=== PATIENT | male | born 1950 | race Caucasian/White ===

== ENCOUNTER 2019-05-28 10:55 | Inpatient (IN) | payer MEDICARE ==
[~2019-05-28] VITALS: Ht 182.9 cm; Wt 70.8 kg
--- NOTE | 2019-05-28 11:00 | NUR ---
RN NOTE- ADMISSION NOTE PT ARRIVED VIA WCR FROM [facility] 5150 DTS AFTER EXPRESSING SUICIDAL IDEATION WITH PLAN TO "...KILL MYSELF WITH A KNIFE." PT HAS HAD MULTIPLE HOSPITALIZATIONS GOING BACK TO HIS LATE TEENS FOR DX BIPOLAR DO, SCHIZOPHRENIA. ON FACE TO FACE ASSESSMENT, PT CONTRACTS FOR SAFETY AND STATES, "IM DEPRESSED BUT DON'T WANT TO KILL MYSELF RIGHT NOW." DENIES HALLUCINATIONS OF ANY KIND. VS- B/P- 137/75, HR- 93, RR- 19, TEMP- 98.0. SATURATION 100% RA. PT DISHEVELED WITH RAMBLING CONVERSATION, A BIT GRANDIOSE AND TANGENTIAL IN THOUGHT. MOVES ALL EXTREMITIES W FULL RANGE OF MOTION. STATES HE HAS LOWER BACK PAIN THAT "I ALWAYS HAVE. NO OTHER MEDICAL ISSUES NOTED OR STATED AT PRESENT TIME. ID [id number] PLACED ON PT. CONSENTS SIGNED. DR MARTINS AND GABI GARCIA IN TO SEE PT. ORDERS WRITTEN AND COMPLIED WITH. WILL PROVIDE SAFE THERAPEUTIC ENVIRONMENT AND MONITOR PT
[2019-05-28] MEDS ORDERED: SIMV-49 PO (11:04)
[2019-05-28] MEDS ORDERED: DIVA-78 PO (11:04)
[2019-05-28] MEDS ORDERED: LITH300T3 PO (11:04)
[2019-05-28] MEDS ORDERED: CHLO25TA2 PO (11:04)
[2019-05-28] MEDS ORDERED: ROPI0.255 PO (11:04)
[2019-05-28] MEDS ORDERED: PHEN100C4 PO (11:04)
[2019-05-28] MEDS ORDERED: CARB-93 PO (11:04)
[2019-05-28] MEDS ORDERED: ACETAMINOPHEN 325 MG TABLET PO PRN (12:00)
[2019-05-28] MEDS ORDERED: BLOOD SUGAR DIAGNOSTIC 1 EACH STRIP IN ONE (12:00)
[2019-05-28] MEDS ORDERED: MAG HYDROX/AL HYDROX/SIMETH 30 ML UDC PO PRN (12:00)
[2019-05-28] MEDS: DIVALPROEX SODIUM 125 MG CAP.SPRINK PO SCH ×2 (13:04→17:06)
[2019-05-28] MEDS: CARBIDOPA/LEVODOPA 25/100 MG 1 UDTAB PO SCH ×2 (13:05→17:06)
[2019-05-28] MEDS: IBUPROFEN 400 MG TABLET PO PRN ×2 (13:05→21:42)
--- NOTE | 2019-05-28 13:05 | NUR ---
RN NOTE- PT MED COMPLIANT. STATED PAIN TO LOWER BACK. 6-10. MOTRIN GIVEN AT THIS TIME.
[2019-05-28 16:00] VITALS: BP 134/71
[2019-05-28] MEDS ORDERED: PHENYTOIN EXTENDED RELEASE 100 MG CAPSULE PO SCH (17:00)
[2019-05-28 20:12] VITALS: BP 114/65
[2019-05-28] MEDS: LITHIUM CARBONATE 150 MG CAPSULE PO SCH (21:33)
[2019-05-28] MEDS: SIMVASTATIN 20 MG TABLET PO SCH (21:34)
[2019-05-28] MEDS: LORAZEPAM 0.5 MG TABLET PO PRN (23:04)
[2019-05-29 07:02] LABS: ALBUMIN 3.3 g/dL (3.4-5.0); BILIRUBIN,TOTAL 0.2 mg/dL (0.2-1.0); CALCIUM, SERUM 8.7 mg/dL (8.5-10.1); CREATININE 0.6 mg/dL (0.6-1.3); POTASSIUM 4.4 mmol/L (3.5-5.1); TOTAL PROTEIN, SERUM 6.6 g/dL (6.4-8.2)
[2019-05-29 07:32] LABS: PHENYTOIN (DILANTIN) 3.6 ug/ml (10.0-20.0)
[2019-05-29 08:00] VITALS: BP 122/55
[2019-05-29 08:20] VITALS: BP 145/87
--- NOTE | 2019-05-29 08:20 | NUR ---
gps manager investment: notes found pt lying on his right side. pt is awake and able to make needs known. rom done to all ext's wnl. pt c/o lower back, and hip pain. asked pt if he hit his head and says yes. asked pt what happened, stated, "i was trying to get in position to eat my breakfast and i just fell down on the floor." per roommate, "he was standing up and loose his spool winder and then fell on the floor." assisted pt safely back to bed. vital signs taken and recorded. place a call to [employer], was on hold for minutes and then finally someone answered the call; message left to page peyton leon ([facility]). peyton leon ([facility]) called back at 0832 and informed her of incident with new orders. orders read back and carried out. Addendum: 05/29/19 at 0921 by PARESH MANTILLA LVN denies dizziness. neuro check wnl, pupils perrla at 3mm. no bump, bruise, but noted with small abrasion to left hip. will continue to monitor.
--- NOTE | 2019-05-29 08:25 | NUR ---
gps teletype or varitype keyboard operator: notes charge nurse also assessed pt.
--- NOTE | 2019-05-29 08:45 | NUR ---
gps vocational instructor: notes pt up and about using his walker in the hallway, informed pt that he needs to go back to bed. assisted pt safely back to bed.
--- NOTE | 2019-05-29 09:00 | NUR ---
gps review analyst: notes taken down for ct and x-rays via [facility] accompanied by staff.
--- NOTE | 2019-05-29 09:30 | NUR ---
gps customer assistant: notes back from radiology dept to his room.
[2019-05-29] MEDS: MAGNESIUM HYDROXIDE 30 ML UDC PO PRN (09:43)
[2019-05-29] MEDS: DIVALPROEX SODIUM 125 MG CAP.SPRINK PO SCH ×3 (09:43→16:48)
[2019-05-29] MEDS: CARBIDOPA/LEVODOPA 25/100 MG 1 UDTAB PO SCH ×3 (09:44→16:48)
[2019-05-29] MEDS: LITHIUM CARBONATE 150 MG CAPSULE PO SCH ×2 (10:18→21:01)
--- NOTE | 2019-05-29 10:20 | NUR ---
gps cosmetic dentist: notes place a call to chetna (), but no answer. social sciences instructor made aware re: s/p fall.
--- NOTE | 2019-05-29 10:30 | NUR ---
gps raisin separator operator: notes peyton leon ([facility]) here and informed her that pt's ct head and lumbar, and pelvis are resulted.
--- NOTE | 2019-05-29 11:20 | NUR ---
gps activity specialist: notes pt in activity dancing at this time.
--- NOTE | 2019-05-29 12:04 | NUR ---
gps rail filler: psych f/u seen by dr. gleason with new order. orders acknowledged. consent obtained from pt and faxed to pharmacy.
[2019-05-29] MEDS: risperiDONE-M 0.5 MG TAB.RAPDIS PO SCH ×2 (12:14→21:01)
[2019-05-29] MEDS ORDERED: PHENYTOIN SUSP UDC 100 MG/4 ML UDC PO SCH (13:00)
--- NOTE | 2019-05-29 13:35 | NUR ---
FAMILY CONTACT: SW contacted pts Sarai [phone] and left a voicemail for callback.
--- NOTE | 2019-05-29 13:44 | NUR ---
LAW ENFORCEMENT CONTACT: KAREN contacted Steelefidencio Velázquez from [facility] [phone] and left a voicemail to callback for collateral information.
--- NOTE | 2019-05-29 13:47 | NUR ---
[facility] CRISIS CONTACT: SW contacted [facility] [address] [facility] [address] and left a message for callback to discuss collateral information with Bhavani LEOS
[2019-05-29] MEDS: LORAZEPAM 0.5 MG TABLET PO PRN ×2 (14:34→21:02)
--- NOTE | 2019-05-29 15:40 | NUR ---
GROUP NOTE: Pt was present in group therapy on this present day discussing, "discharge planning," S: Pt states that he has rights and wants a workers' compensation magistrate to get him out of here because he needs to go rescue his from his parents who have her held hostage. O: Pt lacks insight into his mental illness and has impaired judgement. Pt is paranoid/delusional and states that his step-dad is a pedophile and exposes himself to his and that is why he needs to rescue her. Pt was not easily refractable and thought process is tangential with pressured speech. A: Pt as not gained awareness of mental illness and reason for hospitalization. P: Pt will continue group milieu and medication stabilization with the goal of gaining insight and verbalizing reality based statements.
[2019-05-29 16:00] VITALS: BP 114/62
--- NOTE | 2019-05-29 16:23 | NUR ---
[facility] CRISIS CONTACT: SW received a call from clerk Bettie at [facility] [address] [place] [address] who informed SW that she has contacted [facility] to do a wellness check on pts and mother as she has been unable to ge in contact with either of them.
--- NOTE | 2019-05-29 16:24 | NUR ---
LAW ENFORCEMENT CONTACT: SW received a call from Deputy Leigh from [facility] [phone] stating that he was at pts mother's home [address] [address] (where pt and currently reside) and confirmed that pts mother Noris and Sarai are okay and have not been able to contact SW due to their phone [phone] not working.
[2019-05-29] MEDS: PHENYTOIN SUSP UDC 100 MG/4 ML UDC PO SCH (16:49)
[2019-05-29 20:30] VITALS: BP 127/94
[2019-05-29] MEDS: SIMVASTATIN 20 MG TABLET PO SCH (21:01)
[2019-05-30] MEDS: IBUPROFEN 400 MG TABLET PO PRN (00:13)
[2019-05-30] MEDS: TEMAZEPAM 7.5 MG CAPSULE PO PRN ×2 (00:14→21:37)
[2019-05-30 08:00] VITALS: BP_SYST 98
[2019-05-30] MEDS: PHENYTOIN SUSP UDC 100 MG/4 ML UDC PO SCH ×3 (08:28→16:50)
[2019-05-30] MEDS: DIVALPROEX SODIUM 125 MG CAP.SPRINK PO SCH ×3 (08:28→16:50)
[2019-05-30] MEDS: LITHIUM CARBONATE 150 MG CAPSULE PO SCH ×2 (08:28→20:20)
[2019-05-30] MEDS: risperiDONE-M 0.5 MG TAB.RAPDIS PO SCH ×3 (08:28→20:20)
[2019-05-30] MEDS: CARBIDOPA/LEVODOPA 25/100 MG 1 UDTAB PO SCH ×3 (08:28→16:50)
--- NOTE | 2019-05-30 13:27 | NUR ---
INITIAL DISCHARGE PLAN: Patient wishes to return home [address] [place] [address] . Pt lives with his mom, step dad, and . SW will help form a safe and proper discharge in collaboration with .
--- NOTE | 2019-05-30 14:00 | NUR ---
SUBSTANCE ABUSE INTERVENTION: SW assessed, intervened, and will provide referrals upon discharge.
[2019-05-30 16:00] VITALS: BP 148/72
--- NOTE | 2019-05-30 16:15 | NUR ---
Group Note: SW encouraged pt to attend group therapy on 05/30/19 at 12pm discussing discharge planning. Pt appeared to have a pressured speech pattern and began speaking to the SW about his home situation and how his stepfather is inappropriately exposing himself to everyone in the home. When the SW attempted to interrupt the pt and redirect the pt, he would continue to speak rapidly. SW was able to ask if the pt wanted to return to his home and he stated no. When the SW asked if he would be willing to talk about this topic in a group format the pt refused.
[2019-05-30] MEDS ORDERED: risperiDONE-M 0.5 MG TAB.RAPDIS PO SCH (17:00)
[2019-05-30] MEDS: LIDOCAINE 5% (PATCH) 1 EA PATCH TP SCH (17:32)
--- NOTE | 2019-05-30 18:24 | NUR ---
GPS/RN CLOSING NOTES PATIENT CONTINUES TO REMAIN IN STABLE CONDITION THROUGHOUT THE SHIFT. PROVIDED COMFORT AND SAFETY AT ALL TIMES. COOPERATIVE WITH NO SUICIDAL IDEATION AT THIS TIME. ALL NEEDS ANTICIPATED. CALL LIGHT WITHIN REACHED. BED LOCKED AND IN LOWEST POSITION. WILL CONTINUE TO MONITOR CLOSELY. ENDORSED TO PM NURSE FOR JAKE.
[2019-05-30 19:58] VITALS: BP 134/78
[2019-05-30] MEDS: SIMVASTATIN 20 MG TABLET PO SCH (21:37)
--- NOTE | 2019-05-30 21:56 | NUR ---
GPS RN NOTES: PT C/O UNABLE TO SLEEP. PT REQUEST MEDICATION TO SLEEP. OFFERED RESTORIL 7.5 MG PO PRN ORDERED. ADMINISTERED MEDICATION. PT TOLERATED WELL. CONTINUE TO MONITOR.
--- NOTE | 2019-05-31 00:05 | NUR ---
GPS RN NOTES: VITALS: BP 112/63, HR 72, O2 SAT 98%, RESP 18, TEMP 97.7
[2019-05-31] MEDS: LORAZEPAM 0.5 MG TABLET PO PRN (00:50)
--- NOTE | 2019-05-31 00:56 | NUR ---
GPS RN NOTES: MT C/O FEELING ANXIOUS. OFFERED ATIVAN 0.5MG PO PRN ORDERED. VITALS CHECKED WNL. PT AGREED. [id number] MEDICATION. PT TOLERATED WELL CONTINUE TO MONITOR.
[2019-05-31] MEDS: IBUPROFEN 400 MG TABLET PO PRN (05:17)
--- NOTE | 2019-05-31 05:18 | NUR ---
GPS RN NOTES: PT C/O OF BACK PAIN. PT STATED, "CAN I HAVE PAIN MEDICATION PLEASE?" ASKED PT TO RATE PAIN 0-10. PT STATED, "ITS A 3". OFFERED MOTRIN 400MG PO PRN ORDERED. PT AGREED. ADMINISTERED MEDICATION. CONTINUE TO MONITOR.
[2019-05-31 08:00] VITALS: BP 138/75
[2019-05-31 08:27] LABS: PHENYTOIN (DILANTIN) 13.8 ug/ml (10.0-20.0)
[2019-05-31] MEDS: DIVALPROEX SODIUM 125 MG CAP.SPRINK PO SCH ×3 (08:59→17:53)
[2019-05-31] MEDS: risperiDONE-M 0.5 MG TAB.RAPDIS PO SCH ×3 (09:00→21:24)
[2019-05-31] MEDS: CARBIDOPA/LEVODOPA 25/100 MG 1 UDTAB PO SCH ×3 (09:00→17:53)
[2019-05-31] MEDS: PHENYTOIN SUSP UDC 100 MG/4 ML UDC PO SCH ×3 (09:00→17:53)
[2019-05-31] MEDS: LITHIUM CARBONATE 150 MG CAPSULE PO SCH ×2 (09:01→21:24)
--- NOTE | 2019-05-31 09:10 | NUR ---
PT. ENDORSED TO MIKIE DOCKERY,FOR CARE.
--- NOTE | 2019-05-31 11:00 | NUR ---
WOUND CARE CONSULT: PT PRESENTS AMBULATORY AND CONTINENT WITH DRY SCABS ON HANDS, PRESENT ON ADMISSION. WILL SEE PRN.
--- NOTE | 2019-05-31 11:30 | NUR ---
RECEIVED PT BACK FOR CARE UNDER ME.
--- NOTE | 2019-05-31 15:55 | NUR ---
GROUP NOTE: Pt was present in group therapy on this present day discussing "reality testing." Pt stated that he did not know why he was hospitalized and that he just needed to figure out how to get his money because his mother is his payee and she does not give him money. Pt stated that he needs money because he does not have a home and will be living in the streets when he is discharged. SW explained that he has a home to go to and that he currently lives with his parents. Pt denied it and said that he is homeless. Pt insight is impaired and judgement is poor. Pts thought process remains disorganized and paranoid.
[2019-05-31 16:00] VITALS: BP 126/66
[2019-05-31] MEDS ORDERED: diphenhydrAMINE HCL 25 MG CAPSULE PO PRN (16:00)
--- NOTE | 2019-05-31 16:00 | NUR ---
COOPER GIBBS (CEMENT PRODUCTION PLANT OPERATOR) CAME AND EXAMINED THE RASHES IN PTS. BACK AND ORDERED BENADRYL 25 MG PO Q6HR PRN FOR ITCHY.
[2019-05-31] MEDS: LIDOCAINE 5% (PATCH) 1 EA PATCH TP SCH (17:53)
[2019-05-31 20:16] VITALS: BP 145/76
[2019-05-31] MEDS: SIMVASTATIN 20 MG TABLET PO SCH (21:24)
[2019-05-31] MEDS: TEMAZEPAM 7.5 MG CAPSULE PO PRN (21:25)
[2019-06-01 08:00] VITALS: BP 120/83
[2019-06-01] MEDS: ENSURE ENLIVE 237 ML LIQUID (VANILLA) PO SCH (09:20)
[2019-06-01] MEDS: LITHIUM CARBONATE 150 MG CAPSULE PO SCH ×2 (10:06→20:58)
[2019-06-01] MEDS: DIVALPROEX SODIUM 125 MG CAP.SPRINK PO SCH ×3 (10:06→17:36)
[2019-06-01] MEDS: risperiDONE-M 0.5 MG TAB.RAPDIS PO SCH ×2 (10:07→13:21)
[2019-06-01] MEDS: CARBIDOPA/LEVODOPA 25/100 MG 1 UDTAB PO SCH ×3 (10:09→17:36)
[2019-06-01] MEDS: PHENYTOIN SUSP UDC 100 MG/4 ML UDC PO SCH ×3 (10:09→17:35)
[2019-06-01 16:00] VITALS: BP 148/76
--- NOTE | 2019-06-01 16:06 | NUR ---
SNF REFERRAL: SW faxed SNF referral to [facility] Address: [address] [facility], [place] [address] for review.
--- NOTE | 2019-06-01 16:09 | NUR ---
Group Note: SW encouraged pt to attend group therapy on 06/01/19 at 2pm discussing social supports. Pt appeared to have a pressured speech pattern and appeared to be tangential. Pt stated that he did not want to participate in group therapy but he stated that he has that he must save from the rest of his family. SW had a difficult time redirecting the pt and deemed him inappropriate for group therapy at this time.
[2019-06-01] MEDS: LIDOCAINE 5% (PATCH) 1 EA PATCH TP SCH (17:37)
[2019-06-01 20:05] VITALS: BP 119/74
--- NOTE | 2019-06-01 20:05 | NUR ---
GPS/RESEARCH ANIMAL FACILITY SUPERVISOR NOTES: PT. FOUND SITTING ON THE FLOOR BY CHARGE NURSE ROCAEL WEEKS AFTER BED ALARM SOUNDING AND LOUD NOISE HEARD. PT. STATED THAT HE TRIED TO GET UP WITHOUT USING CALL ANDERSON AFTER INSTRUCTED TO DO SO, AND SLIPPED ON THE FLOOR. PT. REFUSED TO USE WALKER AND HAD FRESH PAIR OF NON SLIP SOCKS ON. VITALS TAKEN : BP 136/79, HR 88, RESPIRATION 18, AND O2 SAT NOTED AT 98%. PT. DENIES HITTING HEAD AND LOSS OF CONSCIOUSNESS AND DENIES ANY PAIN. ROM TO BOTH UPPER AND LOWER EXTREMITIES DONE WITHOUT ANY PAIN OR RESTRICTIONS. WILL PAGE DR. NEW AND NOTIFY CHILD CARE NURSE AND FAMILY.
--- NOTE | 2019-06-01 20:20 | NUR ---
GPS/DIRECTOR FIELD SERVICES NOTES: PAGED DR. NEW REGARDING PT. FALL. WILL WAIT FOR CALL BACK.
[2019-06-01] MEDS: SIMVASTATIN 20 MG TABLET PO SCH (20:58)
[2019-06-01] MEDS ORDERED: risperiDONE-M 0.5 MG TAB.RAPDIS PO SCH (21:00)
--- NOTE | 2019-06-01 21:59 | NUR ---
GPS/GAMEPLAY ENGINEER NOTES: DR. NEW RETURNED CALL. INFORMED HER REGARDING FALL. NO NEW ORDERS.
[2019-06-02] MEDS: IBUPROFEN 400 MG TABLET PO PRN (02:06)
[2019-06-02] MEDS ORDERED: ONDANSETRON HCL 4 MG/5 ML SOLUTION PO PRN (02:30)
[2019-06-02 07:50] LABS: BASOPHILS % (AUTO) 0.3 % (0.0-2.0); EOSINOPHILS % (AUTO) 1.3 % (0.0-6.0); HEMATOCRIT 41 % (39-51); HEMOGLOBIN 13.6 g/dL (13.5-17.5); LYMPHOCYTES # (AUTO) 1.4 /CMM (0.8-4.8); LYMPHOCYTES % (AUTO) 18.8 % (20.0-44.0); MEAN CORPUSCULAR HGB CONC 33 g/dl (31.0-36.0); MEAN CORPUSCULAR VOLUME 94 fL (80-96); MONOCYTES # (AUTO) 0.5 /CMM (0.1-1.30); MONOCYTES % (AUTO) 7.1 % (2.0-12.0); NEUTROPHILS # (AUTO) 5.6 /CMM (1.8-8.9); NEUTROPHILS % (AUTO) 72.5 % (43.0-81.0); PLATELET COUNT (AUTO) 254 /CMM (150-450); RED BLOOD CELL COUNT(AUTO) 4.35 MIL/uL (4.5-6.0); WHITE BLOOD COUNT (AUTO) 7.7 K/uL (4.3-11.0)
[2019-06-02 08:00] VITALS: BP 131/70
[2019-06-02 08:12] LABS: CREATININE 0.7 mg/dL (0.6-1.3); MAGNESIUM 2.1 mg/dL (1.8-2.4); PHOSPHORUS 2.9 mg/dL (2.5-4.9); POTASSIUM 3.9 mmol/L (3.5-5.1)
[2019-06-02] MEDS: ENSURE ENLIVE 237 ML LIQUID (VANILLA) PO SCH ×2 (09:00→17:32)
--- NOTE | 2019-06-02 09:30 | NUR ---
SNF CONTACT: SW received a call from darlene Greene at [facility] Address: [address] [place] [address] stating pt has not been accepted to the facility due to him not having a Dementia/ Alzheimer diagnosis and not being appropriate for their population as pt has more psych issues.
[2019-06-02] MEDS: PHENYTOIN SUSP UDC 100 MG/4 ML UDC PO SCH ×3 (09:50→17:32)
[2019-06-02] MEDS: risperiDONE-M 0.5 MG TAB.RAPDIS PO SCH ×2 (09:52→12:48)
[2019-06-02] MEDS: DIVALPROEX SODIUM 125 MG CAP.SPRINK PO SCH ×3 (09:52→17:32)
[2019-06-02] MEDS: CARBIDOPA/LEVODOPA 25/100 MG 1 UDTAB PO SCH ×3 (09:53→17:32)
[2019-06-02] MEDS: LITHIUM CARBONATE 150 MG CAPSULE PO SCH (09:53)
--- NOTE | 2019-06-02 10:19 | NUR ---
SNF REFERRAL: SW faxed SNF referral to Reynaldo, business services coordinator at [facility] ([facility]) [address] [place] [address] P: [phone] for review.
--- NOTE | 2019-06-02 11:48 | NUR ---
DISCHARGE PLAN: Pt discharging at 4:00pm via [facility] to [facility] ([facility]) [address] [place] [address] P: [phone]. SW contacted pts mother Noris [phone] who agreed with the discharge plan. Pts mood is euthymic with congruent affect. Pt denied visual/auditory hallucinations and denied suicidal /homicidal ideation. Pt will address his cannabis use and alcohol use with Psychiatrist: Dr. Michelle Hwang [address] [place] [address] [phone] and follow up with Rag Willow Operator: Dr Reyes Address: [address] [place] [phone] .The multidisciplinary exitcare form was done, printed, signed, and given to the patient.
[2019-06-02] MEDS: MAGNESIUM HYDROXIDE 30 ML UDC PO PRN (12:22)
--- NOTE | 2019-06-02 15:58 | NUR ---
MIKIE NOTE- CARE TRANSFERRED TO JANES DELUNA Addendum: 06/02/19 at 1603 by DOREEN TURNER RN MIKIE SANDOVAL- CARE TRANSFERRED TO ELIZABETH DELUNA
[2019-06-02 16:00] VITALS: BP 147/67
--- NOTE | 2019-06-02 16:10 | NUR ---
GPS/RN Pt is being discharged to [facility]. PT REFUSED TO SIGN D/C PAPERWORK/EXIT CARE AND REFUSED TO LET NURSE TO TAKE PICTURES. CALLED FOR FACILITY TO REPORT/NO ANSWER. [facility] ADMITTING CONTACTED BY ADRIAN JONES AND NURSE WILL CALL GPS FOR REPORT.
[2019-06-02] MEDS: LIDOCAINE 5% (PATCH) 1 EA PATCH TP SCH (18:01)
--- NOTE | 2019-06-02 19:35 | NUR ---
GPS/RN PT LEFT TO [facility]IA [facility] #[id number]. VSS. NO ACUTE DISTRESS NOTED. NO SI OR HI AT THE TIME OF DISCHARGE. PROPERTY RETURNED. MEDS RECON /EXIT CARE TEACHINGS PROVIDED.
--- NOTE | 2019-06-26 09:02 | NUR ---
15 DAY SUBSTANCE ABUSE FOLLOW UP: Pt excluded due to D/C to SNF.
== END 2019-06-02 19:40 | DRG 885 ==
LOC: GPS 10:55
PROVIDERS: ADMIT Psychiatry & Neurology Psychosomatic Medicine; ATTEND Nurse Practitioner Acute Care
DX: F25.0 Schizoaffective disorder, bipolar type (principal); R45.851 Suicidal ideations; E78.5 Hyperlipidemia, unspecified; G20 Parkinson's disease; F12.90 Cannabis use, unspecified, uncomplicated; F10.10 Alcohol abuse, uncomplicated; Z59.0 Homelessness; F41.9 Anxiety disorder, unspecified; F09 Unspecified mental disorder due to known physiological condition; F19.10 Other psychoactive substance abuse, uncomplicated; G40.909 Epilepsy, unspecified, not intractable, without status epilepticus; K21.9 Gastro-esophageal reflux disease without esophagitis; G89.29 Other chronic pain; M54.5 Low back pain; G25.2 Other specified forms of tremor; T50.905A Adverse effect of unspecified drugs, medicaments and biological substances, initial encounter; Y92.89 Other specified places as the place of occurrence of the external cause
CPT/HCPCS: 36415; 70450-TC; 72100-TC; 72170-TC; 80048-TC; 80053-TC; 80061-TC; 80164-TC; 80185-TC; 82962-TC; 83735-TC; 84100-TC; 85025-TC; 87081-TC; 95819-TC; 97116-TC; 97530-TC; Q0162; Q0163

== ENCOUNTER 2019-06-03 22:40 | Inpatient (IN) | payer MEDICARE ==
[~2019-06-03] VITALS: Ht 182.9 cm; Wt 82.1 kg
[~2019-06-03 22:40] MED LIST: CARB-93 PO; CHLO25TA2 PO; DIVA-78 PO; LITH300T3 PO; PHEN100C4 PO; ROPI0.255 PO; SIMV-49 PO
--- NOTE | 2019-06-03 22:46 | NUR ---
SEEN AND EXAMINED BY
--- NOTE | 2019-06-03 23:06 | NUR ---
PT BIB EMS FROM [facility] C/O LACERATION ABOVE THE LEFT EYE. PATIENT WAS FOUND ON FLOOR IN THE RESTROOM FOLLOWING AN UNWITNESSED FALL WITH BLOOD COMING FROM LACERATION ABOVE THE LEFT EYE, PER EMS REPORT. AAOX3, UNABLE TO RECALL THE DATE. NO SOB. NOT IN ANY DISTRESS. CONNECTED TO MONITOR.
--- NOTE | 2019-06-03 23:10 | NUR ---
EMT AT BEDSIDE FOR CLEANING OF WOUND
--- NOTE | 2019-06-03 23:18 | NUR ---
BLOOD DRAWN AND SENT TO LAB.
[2019-06-03 23:23] LABS: BASOPHILS # (AUTO) 0.1 /CMM (0.0-0.2); BASOPHILS % (AUTO) 0.6 % (0.0-2.0); EOSINOPHILS % (AUTO) 1.2 % (0.0-6.0); HEMATOCRIT 40 % (39-51); HEMOGLOBIN 13.4 g/dL (13.5-17.5); LYMPHOCYTES % (AUTO) 24.3 % (20.0-44.0); MEAN CORPUSCULAR HGB CONC 33 g/dl (31.0-36.0); MEAN CORPUSCULAR VOLUME 93 fL (80-96); MONOCYTES # (AUTO) 0.9 /CMM (0.1-1.30); MONOCYTES % (AUTO) 10.7 % (2.0-12.0); NEUTROPHILS # (AUTO) 5.1 /CMM (1.8-8.9); NEUTROPHILS % (AUTO) 63.2 % (43.0-81.0); PLATELET COUNT (AUTO) 206 /CMM (150-450); RED BLOOD CELL COUNT(AUTO) 4.33 MIL/uL (4.5-6.0)
--- NOTE | 2019-06-03 23:39 | NUR ---
taken to ct
--- NOTE | 2019-06-04 00:38 | NUR ---
SIDE RAILS ARE UP. PT FOUND ON FLOOR. PATIENT RESPONSIVE. NOT IN ANY DISTRESS. NO SIGNS OF HEAD TRAUMA. MD NOTIFIED.
--- NOTE | 2019-06-04 00:39 | NUR ---
ER MD MADE AWARE OF INCIDENT. ER MD AT BEDSIDE TO RE-EVAL PT WITH ADDITIONAL ORDERS RECEIVED. WILL CARRY OUT ORDERS.
--- NOTE | 2019-06-04 00:50 | NUR ---
UMESH KING TAKING PATIENT FOR CT.
--- NOTE | 2019-06-04 00:58 | NUR ---
PATIENT RETURNED FROM CT.
[2019-06-04] MEDS ORDERED: NITROGLYCERIN 0.4 MG/TAB BOTTLE SL PRN (02:30)
[2019-06-04] MEDS ORDERED: MAG HYDROX/AL HYDROX/SIMETH 30 ML UDC PO PRN (02:30)
--- NOTE | 2019-06-04 02:49 | NUR ---
REPORT GIVEN TO TATI LEE RN
[2019-06-04 03:55] LABS: ALANINE AMINOTRANSFERASE 22 U/L (12-78); ALBUMIN 3.9 g/dL (3.4-5.0); ALKALINE PHOSPHATASE 67 U/L (46-116); ASPARTATE AMINOTRANSFERASE 14 U/L (15-37); BILIRUBIN,DIRECT 0.1 mg/dL (0.0-0.2); BILIRUBIN,TOTAL 0.2 mg/dL (0.2-1.0); CARBON DIOXIDE 30 mmol/L (21-32); CHLORIDE 105 mmol/L (98-107); CREATININE 0.7 mg/dL (0.6-1.3); GLUCOSE 113 mg/dL (74-106); POTASSIUM 3.9 mmol/L (3.5-5.1); SODIUM SERUM 143 mmol/L (136-145); UREA NITROGEN, BLOOD 13 mg/dL (7-18)
[2019-06-04] MEDS: IV NS 0.9% 1,000 ML IV SCH ×2 (05:05→22:35)
--- NOTE | 2019-06-04 06:15 | NUR ---
ENDING NOTES: ADMITTED @ 04:16 ALERT AND ORIENTATED TO HIS NAME. HE IS COOPERATIVE. ER MADE ME AWARE HE MOVES FAST AND WILL GET OOB UNASSISTED, SAT IN HIS ROOM WAITING FOR ORDERED SITTER TO COME CHANGE OF SHIFT. HIS ORAL CARE IS POOR SEEN TEETH MISSING, AND FOUL MOUTH ORDER. DRANK SOME JUICE SWALLOWS W/O PROBLEM LOLITA. ATEMTED TO GET OOB MOVES FAST. VOIDED 300ML IN THE URINAL WITH MUCH ASSIST HE IC CONFUSED.
--- NOTE | 2019-06-04 07:20 | NUR ---
C APPLICATION DEVELOPER OPENING NOTES RECEIVED PT IN BED, ASLEEP, EASILY AROUSED, A/O X1; WITH A 1:1 SITTER BEDSIDE. PT TOLERATING RA, WITH NO ACUTE RESPIRATORY DISTRESS NOTED. PT DENIES ANY PAIN OR DISCOMFORT AT THIS TIME. ALSO, DENIES ANY CONCERNS OR QUESTIONS AT THE MOMENT. ON TELEMONITORING WITH SR 93. IVF NS AT 50 ML/HR TO RAC G20, INTACT AND FLUID INFUSING WELL. PT KEPT COMFORTABLE. CALL LIGHT KEPT WITHIN REACH. PT'S BED IN LOWEST, LOCKED POSITION WITH SR X3. WILL CONTINUE PLAN OF CARE.
[2019-06-04 08:00] VITALS: BP 146/88
[2019-06-04] MEDS: PHENYTOIN EXTENDED RELEASE 100 MG CAPSULE PO SCH ×3 (08:59→18:00)
[2019-06-04] MEDS ORDERED: Chlorthalidone 25 MG PO SCH (09:00)
[2019-06-04] MEDS ORDERED: LITHIUM CARBONATE (300 MG CAP) 300 MG CAPSULE PO SCH (09:00)
--- NOTE | 2019-06-04 09:00 | NUR ---
ASSEMBLER WET WASH NOTES RECEIVED CRITICAL LAB RESULT FOR PHENYTOIN 28.2. INFORMED HOSPITALIST MANAGER SUPPLIER/DT. ORDERED TO HOLD DOSE TODAY AND REPEAT PHENYTOIN LEVEL IN AM. ORDERED PLACED AND INITIATED. WILL CONTINUE TO MONITOR PT.
[2019-06-04] MEDS: DIVALPROEX SODIUM 500 MG TABLET.DR PO SCH ×3 (10:00→18:00)
[2019-06-04] MEDS: ropiniROLE 0.5 MG TABLET PO SCH ×3 (10:00→17:00)
[2019-06-04] MEDS: CARBIDOPA/LEVODOPA 25/100 MG 1 UDTAB PO SCH ×3 (10:00→17:00)
--- NOTE | 2019-06-04 10:30 | NUR ---
NETWORKING ADMINISTRATOR NOTES PT IS TOO SEDATED. /ELIEZER CAME FOR CONSULT. AWARE OF PT'S SITUATION. AWARE OF MORNING MEDS WERE NOT GIVEN. WILL CONTINUE TO MONITOR PT.
[2019-06-04 12:00] VITALS: BP 146/70
[2019-06-04 14:53] LABS: APPEARANCE,URINE CLEAR (CLEAR); BILIRUBIN,URINE NEGATIVE (NEGATIVE); BLOOD, URINE NEGATIVE Ery/uL (NEGATIVE); COLOR,URINE YELLOW (YELLOW); KETONES,URINE NEGATIVE (NEGATIVE); LEUKOCYTE ESTERASE ,URINE NEGATIVE (NEGATIVE); NITRITE, URINE NEGATIVE (NEGATIVE); PROTEIN,URINE NEGATIVE (NEGATIVE); UGLUCOSE NEGATIVE (NEGATIVE); UROBILINOGEN,URINE 0.2 EU/dL (0.2)
[2019-06-04 16:00] VITALS: BP 147/72
--- NOTE | 2019-06-04 18:58 | NUR ---
ACTIVE DIRECTORY SPECIALIST CLOSING NOTES PT IN BED, INTERMITTENTLY DOZING, EASILY AROUSED, A/O X1; WITH A 1:1 SITTER BEDSIDE. PT TOLERATING RA, WITH NO ACUTE RESPIRATORY DISTRESS NOTED. PT DENIES ANY PAIN OR DISCOMFORT AT THIS TIME. PT UNABLE TO STAY AWAKE. MD AWARE PT TOO SEDATED AND UNABLE TO TAKE MEDICATIONS AND MEALS. PT ONLY HAD 3 SPOONS AT LUNCH; BREAKFAST AND DINNER, NOTHING. ON TELEMONITORING WITH SR 90. IVF NS AT 50 ML/HR TO RFA G22, INTACT AND FLUID INFUSING WELL. ALL NEEDS AND CARE ATTENDED. PT KEPT COMFORTABLE. CALL LIGHT KEPT WITHIN REACH. PT'S BED IN LOWEST, LOCKED POSITION WITH SR X3. WILL ENDORSE TO INCOMING ELECTRONIC TRANSACTION IMPLEMENTER FOR JAKE.
--- NOTE | 2019-06-04 19:26 | NUR ---
TELE/RN OPENING NOTES RECEIVED PATIENT IN BED, HOB ELEVATED, WITH SITTER, RESTING AT THIS TIME REQUIRE FREQUENT MONITORING DUE TO FREQUENT ATTEMPT TO GET OUT OF BED AND AT FALL RISK. BED LOCKED, CALL LIGHTS WITHIN REACH. ON TELE MONITORING WITH PACED VENT RHYTHM, RFA GAUGE 22 WITH IV NS INFUSING AT 50CC/HR. RECEIVED ENDORSEMENT FROM AM RN FOR JAKE.
[2019-06-04 20:00] VITALS: BP 152/78
[2019-06-04] MEDS: SIMVASTATIN 20 MG TABLET PO SCH (21:03)
[2019-06-04] MEDS: ONDANSETRON HCL/PF 4 MG/2 ML VIAL IVP PRN (21:26)
--- NOTE | 2019-06-04 21:26 | NUR ---
TELE/RN NOTES PATIENT REPORTED HAVING NAUSEA, ZOFRAN IVP SLOWLY GIVEN GIVEN TO MONITOR.
[2019-06-04] MEDS ORDERED: SIMVASTATIN 20 MG TABLET PO SCH (22:00)
[2019-06-05] MEDS: ACETAMINOPHEN 325 MG TABLET PO PRN ×3 (01:36→21:45)
--- NOTE | 2019-06-05 01:38 | NUR ---
TELE/RN NOTES PATIENT REPORTED PAIN , WITH LEFT EYE BRUISE AND ABLE TO VERBALIZE NEEDS, ABLE TO TOLERATE ORAL MEDS WITH WATER, HOB ELEVATED, TYLENOL 650 MG PO GIVEN TO MONITOR.
[2019-06-05 04:00] VITALS: BP_SYST 135; BP_SYST 144; BP_SYST 155; BP_DIAS 72; BP_DIAS 81; BP_DIAS 89
--- NOTE | 2019-06-05 04:00 | NUR ---
TELE/RN NOTES PATIENT ASSISTED AND ABLE TO PARTICIPATE WITH CARE, VITAL SIGNS CHECK WHILE LYING DOEN, SITTING DOWN AND STANDING UP. NOTED WEAK REQUIRE ASSISTANCE.SITTER AT BEDSIDE,
[2019-06-05 06:51] LABS: ALBUMIN 3.7 g/dL (3.4-5.0); BASOPHILS % (AUTO) 0.2 % (0.0-2.0); BILIRUBIN,TOTAL 0.5 mg/dL (0.2-1.0); CALCIUM, SERUM 8.8 mg/dL (8.5-10.1); CREATININE 0.6 mg/dL (0.6-1.3); EOSINOPHILS % (AUTO) 0.1 % (0.0-6.0); HEMATOCRIT 41 % (39-51); HEMOGLOBIN 13.9 g/dL (13.5-17.5); LYMPHOCYTES # (AUTO) 1.8 /CMM (0.8-4.8); LYMPHOCYTES % (AUTO) 13.9 % (20.0-44.0); MAGNESIUM 1.9 mg/dL (1.8-2.4); MEAN CORPUSCULAR HGB CONC 34 g/dl (31.0-36.0); MEAN CORPUSCULAR VOLUME 92 fL (80-96); MONOCYTES # (AUTO) 1.4 /CMM (0.1-1.30); MONOCYTES % (AUTO) 11.4 % (2.0-12.0); NEUTROPHILS # (AUTO) 9.4 /CMM (1.8-8.9); NEUTROPHILS % (AUTO) 74.4 % (43.0-81.0); PHOSPHORUS 3.4 mg/dL (2.5-4.9); PLATELET COUNT (AUTO) 232 /CMM (150-450); RED BLOOD CELL COUNT(AUTO) 4.46 MIL/uL (4.5-6.0); WHITE BLOOD COUNT (AUTO) 12.6 K/uL (4.3-11.0)
--- NOTE | 2019-06-05 07:03 | NUR ---
TELE/RN NOTES PATIENT SLEPT INTERMITENTLY, ASSISTED WITH SITTER, MEDICATION GIVEN FOR NAUSEA AND PAIN. MONITORED AND PROVIDED FLUIDS, IV HYDRATION. BED LOCKED, CALL LIGHTS WITHIN REACH, WILL ENDORSE TO AM RN FOR JAKE. TELE READING SR.
[2019-06-05 07:32] LABS: PHENYTOIN (DILANTIN) 25.7 ug/ml (10.0-20.0)
[2019-06-05 08:00] VITALS: BP 140/66
--- NOTE | 2019-06-05 08:00 | NUR ---
MS RN NOTES PATIENT IN BED RESTING NO SOB OR ACUTE DISTRESS NOTED. PATIENT WITH SITTER. ALERT, ORIENTED X2-3 WITH PERIODS OF CONFUSION. PERIPHERAL IV INTACT PATENT. BED IN LOW LOCKED POSITION. CALL LIGHT WITHIN REACH. WILL CONTINUE TO MONITOR.
[2019-06-05] MEDS: PHENYTOIN EXTENDED RELEASE 100 MG CAPSULE PO SCH ×2 (09:00→13:00)
--- NOTE | 2019-06-05 09:00 | NUR ---
MS RN NOTES THOMAS WINDOWS MIGRATION TECHNICIAN MADE AWARE OF DILANTIN LEVEL 25.7 STATES TO HOLD DILANTIN AND INFORM DR. PALAFOX WHEN HE EVALUATES PATIENT.
[2019-06-05] MEDS: DIVALPROEX SODIUM 500 MG TABLET.DR PO SCH ×3 (09:02→17:29)
[2019-06-05] MEDS: CARBIDOPA/LEVODOPA 25/100 MG 1 UDTAB PO SCH ×2 (09:02→13:11)
[2019-06-05] MEDS: ropiniROLE 0.5 MG TABLET PO SCH ×2 (09:02→13:11)
[2019-06-05] MEDS: ONDANSETRON HCL/PF 4 MG/2 ML VIAL IVP PRN ×3 (09:32→23:36)
[2019-06-05] MEDS ORDERED: MAGNESIUM HYDROXIDE 30 ML UDC PO PRN (10:30)
[2019-06-05 16:00] VITALS: BP 144/80
--- NOTE | 2019-06-05 17:00 | NUR ---
MS RN NOTES PATIENT SEEN AND EVALUATED BY DR. PALAFOX CHANGES MADE TO MEDICATIONS AWARE OF DILANTIN LEVEL MEDICATIONS WAS DISCONTINUED.
[2019-06-05] MEDS: IBUPROFEN 400 MG TABLET PO PRN (17:39)
--- NOTE | 2019-06-05 19:30 | NUR ---
MS RN NOTES PATIENT IN BED RESTING NO SOB OR ACUTE DISTRESS NOTED. ALL DUE MEDICATIONS ADMINISTERED. ALL NEEDS MET. PATIENTS NAUSEA AND HEAD ACHE MANAGED BY MEDICATIONS. DR. PALAFOX AWARE OF THE NAUSEA AND THE HEAD ACHE STATES MOST LIKELY DUE TO THE HEAD TRAUMA SUFFERED DURING THE FALL. ALL DUE MEDICATIONS ADMINISTERED. ALL NEEDS MET. ENDORSED CARE TO PM SHIFT.
[2019-06-05 19:45] VITALS: BP 140/66
--- NOTE | 2019-06-05 20:05 | NUR ---
MS RN OPENING NOTES RECEIVED PATIENT FROM NOC SHIFT RN, ALERT AND ORIENTED X 2. VERBALLY RESPONSIVE AND ABLE TO FOLLOW DIRECTIONS. BREATHING REGULAR AND UNLABORED ON ROOM AIR. RIGHT FOREARM G22 IV LINE INTACT AND PATENT INFUSING WELL WITH NO BLEEDING OR S/S OF INFECTION/INFILTRATION NOTED. NO S/S OF PAIN/DISCOMFORT SEEN OF NOW. OBSERVED WITH FACIAL BRUISES. ON ONE TO ONE SITTER, NO EPISODE OF AGITATION OBSERVED OF THE TIME. BED LOW AND LOCKED ON SEMI FOWLERS POSITION. CALL LIGHT IN REACH. WILL CONTINUE TO MONITOR.
[2019-06-05 20:50] VITALS: BP 153/87
--- NOTE | 2019-06-05 21:19 | NUR ---
MS/RN ASSUMED CARE FOR CONTINUITY OF CARE. PATIENT IS SLEEPING AT THIS TIME, APPEAR COMFORTABLE, NO SIGNS OF DISTRESS NOTED, SITTER AT BEDSIDE, WILL MONITOR.
[2019-06-05] MEDS: SIMVASTATIN 20 MG TABLET PO SCH (21:45)
[2019-06-06] MEDS: IBUPROFEN 400 MG TABLET PO PRN ×2 (01:08→11:47)
--- NOTE | 2019-06-06 02:00 | NUR ---
MS/RN PATIENT IS SLEEPING AT THIS TIME, AROUSABLE, AP
--- NOTE | 2019-06-06 02:00 | NUR ---
MS/RN PATIENT IS SLEEPING AT THIS TIME, AROUSABLE, APPER COMFORTABLE, NO SIGNS OF DISTRESS NOTED, CALL LIGHT IN REACH. WILL CONTINUE TO MONITOR.
[2019-06-06] MEDS: IV NS 0.9% 1,000 ML IV SCH (05:58)
[2019-06-06 06:17] LABS: BASOPHILS % (AUTO) 0.2 % (0.0-2.0); EOSINOPHILS % (AUTO) 0.2 % (0.0-6.0); HEMATOCRIT 39 % (39-51); HEMOGLOBIN 13.2 g/dL (13.5-17.5); LYMPHOCYTES # (AUTO) 1.4 /CMM (0.8-4.8); LYMPHOCYTES % (AUTO) 14.9 % (20.0-44.0); MEAN CORPUSCULAR HGB CONC 34 g/dl (31.0-36.0); MEAN CORPUSCULAR VOLUME 93 fL (80-96); MONOCYTES # (AUTO) 1.1 /CMM (0.1-1.30); MONOCYTES % (AUTO) 11.3 % (2.0-12.0); NEUTROPHILS # (AUTO) 6.8 /CMM (1.8-8.9); NEUTROPHILS % (AUTO) 73.4 % (43.0-81.0); PLATELET COUNT (AUTO) 215 /CMM (150-450); RED BLOOD CELL COUNT(AUTO) 4.22 MIL/uL (4.5-6.0); WHITE BLOOD COUNT (AUTO) 9.3 K/uL (4.3-11.0)
[2019-06-06 06:31] LABS: CALCIUM, SERUM 8.8 mg/dL (8.5-10.1); CREATININE 0.5 mg/dL (0.6-1.3); POTASSIUM 3.8 mmol/L (3.5-5.1)
--- NOTE | 2019-06-06 06:46 | NUR ---
MS/RN PATIENT APPEAR SLEEPING, APPEAR COMFORTABLE, NO SIGNS OF DISTRESS NOTED, ALL NEEDS ATTENDED AT THIS TIME, WILL CONTINUE TO MONITOR.
[2019-06-06 08:00] VITALS: BP 145/62
--- NOTE | 2019-06-06 08:00 | NUR ---
m/s fitness consultant: initial assessment received pt in bed awake, a/ox2 with forgetfulness. no c/o hudson/dizziness. sitter at bedside for safety. in no apparent distress noted. will monitor.
[2019-06-06] MEDS: DIVALPROEX SODIUM 500 MG TABLET.DR PO SCH ×2 (09:24→13:39)
--- NOTE | 2019-06-06 09:40 | NUR ---
m/s vice president of contracts: notes pt c/o swallowing problem, but able to swallow thin liquids well and po meds. cari (acnp) notified and made aware with order for swallow eval.
--- NOTE | 2019-06-06 10:30 | NUR ---
m/s branch coordinator: notes speech therapist here and will come back later due to pt asleep.
[2019-06-06] MEDS: ONDANSETRON HCL/PF 4 MG/2 ML VIAL IVP PRN (13:43)
--- NOTE | 2019-06-06 14:30 | NUR ---
m/s picking tech: notes s.t. at bedside for swallow eval and with recommendation. recommendation will include to discharge instruction.
--- NOTE | 2019-06-06 16:00 | NUR ---
m/s industrial custodian: notes report given to tunde (rn) from [facility] for continuity of care.
--- NOTE | 2019-06-06 16:10 | NUR ---
m/s group insurance special agent: notes ambulance here and report given to one of the crew.
--- NOTE | 2019-06-06 16:20 | NUR ---
m/s outside cutter hand: notes h/l removed with tip intact with no swelling, no redness, and no bleeding noted.
--- NOTE | 2019-06-06 16:31 | NUR ---
m/s package liner: discharged discharged back to snf in stable condition with belongings and d'c papers. needs attended.
== END 2019-06-06 16:30 | DRG 74 ==
LOC: ER 22:44 → TELE 06-04 02:49 → MED 06-05 10:00
PROVIDERS: ADMIT Nurse Practitioner Acute Care; ATTEND Nurse Practitioner Acute Care
DX: G90.8 Other disorders of autonomic nervous system (principal); E46 Unspecified protein-calorie malnutrition; K21.9 Gastro-esophageal reflux disease without esophagitis; F41.9 Anxiety disorder, unspecified; S00.03XA Contusion of scalp, initial encounter; W18.30XA Fall on same level, unspecified, initial encounter; Y92.89 Other specified places as the place of occurrence of the external cause; G20 Parkinson's disease; F31.9 Bipolar disorder, unspecified; F20.9 Schizophrenia, unspecified; G40.909 Epilepsy, unspecified, not intractable, without status epilepticus; G24.01 Drug induced subacute dyskinesia; E78.5 Hyperlipidemia, unspecified; I50.9 Heart failure, unspecified; J44.9 Chronic obstructive pulmonary disease, unspecified; D63.8 Anemia in other chronic diseases classified elsewhere; F10.10 Alcohol abuse, uncomplicated; D72.829 Elevated white blood cell count, unspecified; F09 Unspecified mental disorder due to known physiological condition; G89.29 Other chronic pain; M54.5 Low back pain; S09.90XA Unspecified injury of head, initial encounter; S00.12XA Contusion of left eyelid and periocular area, initial encounter
CPT/HCPCS: 36415; 70450-TC; 70486-TC; 71045-TC; 72125-TC; 72220-TC; 80048-TC; 80053-TC; 80061-TC; 80076-TC; 80185-TC; 81000-TC; 83735-TC; 84100-TC; 84484-TC; 85025-TC; 85730-TC; 87081-TC; 92611-TC; 93307-TC; 93880-TC; 97116-TC; 97530-TC; A6403; A6407; G0378; J2405; J7030; J7040